=== PATIENT | female | born 1960 | race Caucasian/White ===

== ENCOUNTER → 2016-11-26 | Outpatient (CLI) | payer BC | LOC: RAD 14:56 | DX: M25.541 Pain in joints of right hand (principal) | CPT/HCPCS: 73130 ==

== ENCOUNTER → 2016-12-21 | Outpatient (CLI) | payer BC ==
[2016-12-21 15:47] LABS: BUN/CREATININE RATIO 32 (0-10)
== END ==
LOC: LAB 09:15
PROVIDERS: Internal Medicine
DX: E11.65 Type 2 diabetes mellitus with hyperglycemia (principal); I10 Essential (primary) hypertension
CPT/HCPCS: 36415; 80048

== ENCOUNTER → 2016-12-23 | Outpatient (CLI) | payer BC | LOC: KOH-I 12-20 08:30 → MRI 08:57 | DX: R52 Pain, unspecified (principal) | CPT/HCPCS: 70553; A9577 ==